=== PATIENT | female | born 1995 | race Caucasian/White ===

== ENCOUNTER 2017-10-19 22:45 | Emergency (ER) | payer OTHER ==
[~2017-10-19] VITALS: Ht 167.6 cm; Wt 93.4 kg
[2017-10-20 00:18] LABS: HEMATOCRIT 38.4 % (36.0-46.0); HEMOGLOBIN 12.8 G/DL (11.9-15.5); MCH 28.2 PG (29.0-34.0); MCHC 33.3 G/DL (30.0-36.0); MCV 84.6 FL (83-99); PLATELET COUNT 247 K/uL (156-360); RBC DIS.WIDTH-CV 12.4 % (11.8-14.6); RBC DIS.WIDTH-SD 37.8 % (39-53); RED BLOOD COUNT 4.54 M/uL (3.80-5.20); WHITE BLOOD COUNT 8.4 K/uL (4.1-10.2)
[2017-10-20 00:29] LABS: ALBUMIN 4.4 g/dL (3.2-4.8); CHLORIDE 109 mEq/L (99-109); POTASSIUM 4.1 mEq/L (3.7-5.4); SODIUM 146 mEq/L (136-147)
[2017-10-20 00:31] LABS: GLUCOSE 105 mg/dL (70-99); TOTAL PROTEIN 7.5 g/dL (6.4-8.3)
[2017-10-20 00:33] LABS: TOTAL BILIRUBIN 0.3 mg/dL (0.0-1.0)
[2017-10-20 00:35] LABS: ALKALINE PHOSPHATASE 81 IU/L (3-129); CREATININE 0.7 mg/dL (0.6-1.3); GFR ESTIMATE (CALCULATED) > 59 mL/min/
[2017-10-20 00:36] LABS: AST (GOT) 110 IU/L (2-34); UREA NITROGEN (BUN) 8 mg/dL (9-23)
[2017-10-20 00:38] LABS: ALT (GPT) 122 IU/L (3-49)
[2017-10-20 00:47] LABS: QUANTITATIVE HCG < 4.0 MIU/ML
[2017-10-20 01:09] VITALS: BP 132/74
== END 2017-10-20 01:11 | disposition home or self-care (01) ==
LOC: EME 22:45
PROVIDERS: Physician Assistant
DX: R51 Headache (principal); R05 Cough; R79.89 Other specified abnormal findings of blood chemistry
CPT/HCPCS: 70450; 80053; 84702; 85027; 99281; 99284